=== PATIENT | female | born 1965 | race Caucasian/White ===

== ENCOUNTER 2016-11-23 11:00 | Observation (INO) | payer BC ==
--- NOTE | ~2016-11-23 | EKG ---
PATIENT: GIAN BROOKE UNIT #: [id number] Ventricular Rate: 45 BPM Atrial Rate: 45 BPM P-R Interval: 172 ms QRS Duration: 102 ms Q-T Interval: 470 ms QTC Calculation(Bezet): 406 ms P [place]: 40 degrees Calculated R [place]: 53 degrees Calculated T [place]: 31 degrees Diagnosis Line: Sinus bradycardia Diagnosis Line: Otherwise normal ECG Diagnosis Line: No previous ECGs available Diagnosis Line: Confirmed by ANAND GIRALDO MD ([id number]) on 11/23/2016 Diagnosis Line: 4:46:40 PM INTERPRETING MD: ENZO PALACIO
--- NOTE | ~2016-11-23 | HP ---
Unit #: [id number] #: [id number] Patient: GIAN BROOKE [id number] [place], [place] [address] [id number] I MR#: [id number] NAME: GIAN BROOKE ROOM: 66915 Age: 51 Sex: F Admission Date: 11/23/2016 : 1965 Attending Physician: Joan Willoughby M.D. Primary Care Physician: No Primary Care Physician HISTORY AND PHYSICAL CHIEF COMPLAINT Syncopal episode in [facility]. HISTORY OF PRESENT ILLNESS The patient is a 51-year-old female with no significant past medical history, who presented to the emergency department for evaluation of the above. The patient states that she was in her usual state of health until the morning of admission when she felt lightheaded at [facility]. She states that she had eaten breakfast this morning. She was standing in [facility] and experiencing some minor low-back pain that she attributed to muscle strain related to work. She states that she felt somewhat lightheaded. She subsequently sat down. There was a nurse at [facility] who checked her heart rate and it was in the 40s. She states that she felt lightheaded for about 15 minutes and then the symptoms resolved. She denies any chest pain, no shortness of breath, no palpitations. She states that she had a similar event years ago when she was having blood work during and had a near syncopal episode. In the emergency department, initial pulse and blood pressure were 54 and 86/63 respectively. EKG showed sinus bradycardia with a rate of 45 beats per minute. She is being admitted to [facility] for evaluation and further treatment. PAST MEDICAL HISTORY Hospitalized possibly at [facility] for near syncopal episode during . PAST SURGICAL HISTORY None. SOCIAL HISTORY The patient lives with her . There is no tobacco or alcohol use. She works at [employer]. She is active. She states that she sometimes cuts three lawns in a day. FAMILY HISTORY Notable for her mother dying of a myocardial infarction at the age of 70. Her dad has hyperlipidemia. ALLERGIES No known allergies. Unit #: [id number] #: [id number] Patient: GIAN BROOKE HOME MEDICATIONS None. REVIEW OF SYSTEMS A complete review of systems is negative except as indicated in the HPI. The patient states that she has never had a stress test, never had a cardiac catheterization. DIAGNOSTIC STUDIES LABORATORY: Urine tox screen is negative. Urinalysis notable for trace leukocyte esterase, trace protein, 2-5 red blood cells, 10-25 white blood cells, 2+ bacteria with a just a few squamous cells. Comprehensive metabolic panel is essentially normal. Alcohol level is less than 5. INR is 1. Troponin is less than 0.05. Complete blood count is completely normal. IMAGING: Chest x-ray shows no acute abnormality. CARDIOVASCULAR: EKG shows sinus bradycardia with rate of 45 beats per minute. PHYSICAL EXAMINATION VITAL SIGNS: Temperature is 98.6, pulse 54, respirations 16, blood pressure 86/63, most recently 98/77. Oxygen saturation is 100% on room air. GENERAL: The patient is a very pleasant female who is awake and alert in no acute distress. HEENT: The head is atraumatic. Mucous membranes are moist. NECK: Supple. Trachea is midline. CARDIOVASCULAR: Regular rate and rhythm. LUNGS: Clear to auscultation bilaterally with no increased work of breathing. ABDOMEN: Soft, nontender with bowel sounds present in all four quadrants. EXTREMITIES: Nontender with no pedal edema. NEUROLOGIC: The patient is awake and alert. She follows commands. PSYCHIATRIC: Mood and affect are normal. The patient is cooperative. SKIN: Skin of examined areas is warm and dry. ASSESSMENT The patient is a 51-year-old female with: 1. Near syncope. 2. Bradycardia. 3. Hypotension. 4. Urinary tract infection. PLAN 1. Admit for observation to intermediate level. 2. Healthy heart diet. 3. NPO after midnight for possible stress test. 4. Normal saline at 125 mL/hr. 5. Fall precautions. 6. Orthostatics q. shift. 7. Serial cardiac enzymes. 8. Consult Dr. Bartlett regarding near syncope. 9. Monitor heart rate and blood pressure closely. 10. Blood cultures x2. 11. Urine culture and sensitivity on urine in the lab. 12. Rocephin 1 g IV daily pending results of urine culture. Unit #: [id number] #: [id number] Patient: GIAN BROOKE 13. Check TSH. 14. SCDs. 15. Repeat labs in the morning. 16. Additional workup and consultants based on above. Dictated by Joan Willoughby M.D. ERIKA/jesus TD: 11/23/2016 14:46 JOB #: [id number] HISTORY AND PHYSICAL Page 1 of 1 X Joan Willoughby MD HISTORY AND PHYSICAL
--- NOTE | ~2016-11-23 | CO ---
Unit #: [id number] #: [id number] Patient: GIAN BROOKE [id number] [address] [id number] I MR#: [id number] NAME: GIAN BROOKE ROOM: 566 Age: 51 Sex: F Admission Date: 11/23/2016 : 1965 Attending Physician: Basia Lott M.D. Consultation Date: 11/24/2016 CONSULTATION REPORT REASON FOR CONSULTATION Near syncope, bradycardia, and hypotension. HISTORY OF PRESENT ILLNESS This is a 51-year-old white female with no significant medical history, who was sent to the emergency room by advice of her health care provider outpatient for near syncopal episode and bradycardia. According to the patient, she was at [employer] yesterday and had been standing and sitting frequently and had been standing for almost 30 minutes. She started feeling very lightheaded and weak. She said she also started felt in flush and sat down. She said there was a nurse nearby who came over to her and checked her pulse. She said her heart rate was 40. The patient never did have a syncopal episode. She denies any chest pain or pain in her neck, bilateral jaws, shoulders, arms, or elbow. She said while she was standing, she had a little bit of lower back discomfort, which she has problems with a strained muscle, but she said it was not unusually painful. She felt better, however, the nurse advised her to go to the hospital to be evaluated. She came to the ER per her advice. The patient said she had an episode like this in the past when she was while there was lot of blood, but never passed out, but just had a near syncopal episode. In the emergency room, the patient's blood pressure was 86/63, her heart rate was 54, respirations 16, temperature 98.6, O2 saturation was 100% on room air. Her EKG shows sinus bradycardia with heart rate of 45 beats per minute, nothing acute. Initial cardiac enzymes are negative. The patient was admitted for near syncope, hypotension, and sinus bradycardia. Cardiology was consulted to assist with evaluation and management. PAST MEDICAL HISTORY 1. Denies hypertension, hyperlipidemia, or diabetes mellitus. 2. No stress or cardiac cath in the past. 3. Nonsmoker. 4. Her mother at the age of 70 with complications after an CO, but she had diabetes mellitus and kidney failure. PAST SURGICAL HISTORY None. HOME MEDICATIONS control pills. ALLERGIES Unit #: [id number] #: [id number] Patient: GIAN BROOKE No known drug allergies. SOCIAL HISTORY The patient lives with her spouse and children. She works full-time at [employer]. She is very active outside the home. 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 She smokes for about 10 years between age 22 and 32, but denies any alcohol or illicit drug abuse. FAMILY HISTORY As mentioned, her mother at the age of 70 after had a myocardial infarction, but she had complications of diabetes mellitus and renal failure. Her father and siblings were in generally well health. REVIEW OF SYSTEMS See details in HPI. PHYSICAL EXAMINATION GENERAL: Ms. Brooke is a 51-year-old white female. No acute respiratory distress. She is awake, alert, and oriented. VITAL SIGNS: Currently, her blood pressure is 104/66 with a heart rate of 53, lying; standing blood pressure 110/68 with a heart rate of 61; respirations 18; afebrile; O2 saturations 99% on room air. NECK: Trachea midline. No thyromegaly or lymphadenopathy. Normal carotid upstrokes. No jugular venous distention. HEART: S1, S2. Regular rate and rhythm. No clicks, murmurs, or rubs. LUNGS: Bilaterally clear throughout. No wheezes, rales, or rhonchi. ABDOMEN: Soft, nontender. Positive bowel sounds present. No hepatosplenomegaly. EXTREMITIES: Pedal pulses are palpable. No pedal edema. DIAGNOSTIC STUDIES LABORATORY RESULTS: Glucose is 107, BUN 12, creatinine 0.7, eGFR is 101.7, sodium 141, potassium 4.0, chloride 112, CO2 is 24, calcium is 8.3, total protein 6.7, albumin 3.8, bilirubin total of 1.2, AST 18, ALT 13, alkaline phosphatase is 48. Lactic acid is 0.6. TSH is 0.48. Alcohol level less than 5. WBCs 5.6, hemoglobin is 12.3, hematocrit 37.8, platelets are 156. Urine tox screen is negative. Urinalysis; trace of leukocyte esterase, trace of protein, 1.0 urobilinogen, 10 to 25 wbc's, 2+ bacteria. Initial cardiac enzymes; CK-MB is less than 1.0, troponin less than 0.05, CK-MB is less than 1.0, troponin less than 0.05. Repeat cardiac enzymes; CK total is 467, MB is 1.1, percentage of MB 1.6, and troponin less than 0.03. IMAGING STUDIES: Chest x-ray shows lungs are slightly hyperinflated, otherwise nothing acute. CARDIOVASCULAR STUDIES: EKG showed normal sinus bradycardia with ventricular rate 45 beats per minute, nothing acute. Telemetry had shown sinus bradycardia, heart rate 50s and 60s. IMPRESSION 1. Near syncope. 2. Hypotension. 3. Bradycardia. 4. Urinary tract infection. 5. Reformed smoker. PLAN Unit #: [id number] #: [id number] Patient: GINA BROOKE 1. Cardiology consult to assist with evaluation and management. It is felt that possibly her near syncopal episode could be vasovagal. Her orthostatic vitals here unremarkable. 2. We will obtain a 2D echo to evaluate LV function and valves. 3. The patient is fairly active with no symptoms. If her echo looks okay and she continues to have no orthostasis, we will plan to do an outpatient stress test at a later date. On exam, there are no signs or symptoms of unstable angina. 4. Her TSH is normal. Obtain a fasting lipid profile and evaluate. 5. The patient is being treated for UTI, which could also be contributing to her near syncopal episode. 6. The patient's blood pressure is better this morning. She did receive a 2 L bolus of IV fluids. 7. Further recommendations pending per Dr. Villatoro. Thank you very much for allowing us to assist in the care. Dictated by... Kathy Jorge/raymond TD: 11/25/2016 00:44 JOB #: [id number] CONSULTATION REPORT Page 1 of 1 X Palak Mejía APRN CONSULTATION REPORT
--- NOTE | ~2016-11-23 | CR72 ---
[facility] A Service of [facility] & [facility] RADIOLOGY TEXT RESULTS PATIENT: GIAN BROOKE LOCATION: [facility] 566-01 : [birth year] UNIT #: [id number] AGE: [address]: Basia Lott MD SEX: F ORDER DR: [id number] [facility] [address] [address] [place], [place] [address] [id number] MR#: [id number] Acc #: [id number] NAME: GIAN BROOKE : 1965 SEX: F STUDY DATE/TIME: 11/23/2016 10:39 UNIT: [facility] ROOM: STUDY DESCRIPTION: CR Chest Single View Portable Attending Physician: Padmini Elise M.D. Ordering Physician: Padmini Elise M.D. Primary Care Physician: No Primary Care Physician MEDICAL IMAGING REPORT This report is preliminary unless electronic signature is present EXAM Single view of the chest dated 11/23/2016. COMPARISON None HISTORY Syncope today. FINDINGS Single view of the chest was obtained. Lungs are slightly hyperinflated which could be due to deep inspiration or less likely emphysematous change in the appropriate clinical setting. No superimposed acute cardiopulmonary disease. No pleural effusion, pneumothorax, or a lung mass. Heart, mediastinum, and bones are within normal limits. Dictated by... Emma Simon M.D. THIS IS AN ELECTRONICALLY VERIFIED REPORT Emma Simon M.D. at 11/24/2016 2:13 PM CPR/tmw TD: 11/23/2016 12:46 JOB #: [id number] MEDICAL IMAGING REPORT Page 1 of 1 COPY
--- NOTE | ~2016-11-23 | DS ---
Unit #: [id number] #: [id number] Patient: GIAN BROOKE [id number] [address] [address] [id number] I MR#: [id number] NAME: GIAN BROOKE ROOM: 566 Age: 51 Sex: F Admission Date: 11/23/2016 : 1965 Discharge Date: 11/24/2016 Attending Physician: Basia Lott M.D. Primary Care Physician: Flor Primary Care Physician DISCHARGE SUMMARY DISCHARGE DIAGNOSES 1. Near syncope with bradycardia secondary to vasovagal, also hypertension and dehydration. 2. Urinary tract infection: Cultures pending at time of dictation. CONSULTATION Dr. Villatoro. PROCEDURES None. LAB DATA Chest x-ray - no pneumonia. Blood cultures negative. Creatinine 0.7, sodium 141, potassium 4.0, WBC 5.6, hemoglobin 11.2, platelets 156. Troponin is negative. TSH 0.48. Lactic acid 0.6. Urine drug screen negative. Urinalysis shows WBC 10-25, bacteria 2+, trace leukocyte esterase. Echocardiogram shows ejection fraction 55%. Mild to moderate tricuspid regurgitation. Mild pulmonary valvular regurgitation present. ALLERGIES None. DISCHARGE MEDICATIONS Nitrofurantoin 100 mg p.o. b.i.d. HOSPITALIZATION COURSE 51-year-old admitted because of near syncope. Near syncope, most likely secondary to vasovagal and also she might have some dehydration and hypovolemia: Patient received IV fluids. She was hypotensive on admission also. Currently, hypotension and bradycardia resolved. She is not orthostatic anymore. No symptoms. The patient will be discharged home. Follow with Dr. Villatoro on Thursday, February 23, at 11 a.m. Follow with family physician in one week time. Unit #: [id number] #: [id number] Patient: GIAN BROOKE Discharge home. Activity as tolerated. Diet - regular. Dictated by... Ronna Hunter TD: 11/25/2016 05:51 JOB #: [id number] DISCHARGE SUMMARY Page 1 of 1 X Basia Lott MD DISCHARGE SUMMARY
[2016-11-23 11:15] LABS: BASOPHIL% 0.3 % (0-2.5); EOSINOPHIL# 0.1 X10e3 (0-0.7); EOSINOPHIL% 0.8 % (0.0-7.0); HEMATOCRIT 37.8 % (35.0-45.0); HEMOGLOBIN 12.3 gm/dL (12.0-16.0); LYMPHOCYTE# 1.8 X10e3 (1.0-3.5); LYMPHOCYTE% 22.7 % (17.0-45.0); MEAN CELL VOLUME 90.6 FL (83-96); MEAN CORPUSCULAR HEMOGLOBIN 29.5 PG (28-34); MEAN CORPUSCULAR HGB CONC 32.6 g/dL (30-36); MEAN PLATELET VOLUME 8.4 FL (6.5-11.5); MONOCYTE# 0.6 X10e3 (0-1.0); NEUTROPHIL# 5.3 X10e3 (1.5-7.1); NEUTROPHIL% 68.2 % (40-75); PLATELET COUNT 209 X10e3 (140-420); RED BLOOD COUNT 4.17 X10e (3.90-5.30); RED CELL DISTRIBUTION WIDTH 12.5 % (11.0-15.5); WHITE BLOOD COUNT 7.8 X10e3 (4.0-10.5)
[2016-11-23 11:17] LABS: DIFF IND NO
[2016-11-23 11:23] LABS: POC - CKMB <1.0 ng/mL (0.0-7.9); POC - TROPONIN <0.05 ng/mL (<=0.05)
[2016-11-23 11:28] LABS: PROTHROMBIN TIME (PATIENT) 10.8 SECONDS (9.6-11.5)
[2016-11-23 11:40] LABS: ALBUMIN SERUM 3.8 g/dL (3.5-5.0); ALKALINE PHOSPHATASE 48 U/L (32-92); ALT (SGPT) 13 U/L (10-40); AST (SGOT) 18 U/L (10-42); BILIRUBIN, DIRECT 0.1 mg/dL (0.0-0.2); BILIRUBIN,INDIRECT 1.1 mg/dL (0.0-0.9); BILIRUBIN,TOTAL 1.2 mg/dL (0.2-2.0); BLOOD UREA NITROGEN 13 mg/dL (9-23); BUN/CREATININE RATIO 14.44; CALCIUM SERUM 8.5 mg/dL (8.4-10.2); CARBON DIOXIDE 26 mmol/L (22-31); CHLORIDE 103 mmol/L (100-111); CREATININE SERUM 0.9 mg/dL (0.6-1.4); GLOM FILT RATE Estimated 75.1 mL/min (>60); GLUCOSE FASTING 95 mg/dL (70-110); POTASSIUM 3.7 mmol/L (3.5-5.1); PROTEIN TOTAL SERUM 6.7 g/dL (6.0-8.3); SODIUM 136 mmol/L (135-145)
[2016-11-23 11:43] LABS: URINE SOURCE CLEAN CATCH
[2016-11-23 11:44] LABS: ALCOHOL BLOOD <5 mg/dL ([, 0])
[2016-11-23 11:50] LABS: URINE APPEARANCE CLOUDY; URINE BLOOD NEG (NEG); URINE COLOR DK YELLOW; URINE GLUCOSE NEG (NEG); URINE KETONE TRACE (NEG); URINE LEUKOCYTE ESTERASE TRACE (NEG); URINE NITRATE NEG (NEG); URINE PROTEIN TRACE (NEG); URINE SPECIFIC GRAVITY 1.024 (1.003-1.035)
[2016-11-23 11:53] LABS: CULTURE INDICATED? YES; URINE BACTERIA AUWI 2+ (NEGATIVE); URINE SQUAMOUS EPITHELIAL CELL FEW /[HPF]
[2016-11-23 11:58] LABS: U HYALINE CASTS AUWI 0-2 /[LPF]; URINE BILIRUBIN NEG (NEG)
[2016-11-23 12:10] LABS: AMPHETAMINE NEG (NEG); BARBITURATES NEG (NEG); BENZODIAZEPINES NEG (NEG); COCAINE NEG (NEG); MARIJUANA NEG (NEG); OPIATES NEG (NEG); TRICYCLIC ANTIDEPRESSANTS NEG (NEG); U METHADONE NEG (NEG)
[2016-11-23 13:43] LABS: POC - CKMB <1.0 ng/mL (0.0-7.9); POC - TROPONIN <0.05 ng/mL (<=0.05)
[2016-11-23 20:45] LABS: CK TOTAL 59 IU/L (26-140)
[2016-11-24 04:48] LABS: %MB 1.6 % (0.0-4.0); MB 1.1 ng/ml
[2016-11-24 05:12] LABS: BASOPHIL% 0.4 % (0-2.5); EOSINOPHIL# 0.1 X10e3 (0-0.7); EOSINOPHIL% 1.1 % (0.0-7.0); HEMATOCRIT 33.4 % (35.0-45.0); HEMOGLOBIN 11.2 gm/dL (12.0-16.0); LYMPHOCYTE# 0.7 X10e3 (1.0-3.5); LYMPHOCYTE% 13.2 % (17.0-45.0); MEAN CORPUSCULAR HGB CONC 33.4 g/dL (30-36); MEAN PLATELET VOLUME 8.4 FL (6.5-11.5); MONOCYTE# 0.5 X10e3 (0-1.0); MONOCYTE% 8.1 % (3.0-12.0); NEUTROPHIL# 4.4 X10e3 (1.5-7.1); NEUTROPHIL% 77.2 % (40-75); PLATELET COUNT 156 X10e3 (140-420); RED BLOOD COUNT 3.72 X10e (3.90-5.30); RED CELL DISTRIBUTION WIDTH 12.2 % (11.0-15.5); WHITE BLOOD COUNT 5.6 X10e3 (4.0-10.5)
[2016-11-24 05:17] LABS: DIFF IND NO
[2016-11-24 06:16] LABS: BUN/CREATININE RATIO 17.14; CALCIUM SERUM 8.3 mg/dL (8.4-10.2); CREATININE SERUM 0.7 mg/dL (0.6-1.4); GLOM FILT RATE Estimated 101.7 mL/min (>60)
[2016-11-24] MEDS ORDERED: NITROFURANTOIN100 M3 PO (17:31)
== END 2016-11-24 17:51 | disposition home or self-care (01) | DRG 312 ==
LOC: CED 11:00 → CEDOF 13:50 → C5C 18:48
PROVIDERS: Emergency Medicine; Family Medicine
DX: R55 Syncope and collapse (principal); R00.1 Bradycardia, unspecified; I95.9 Hypotension, unspecified; N39.0 Urinary tract infection, site not specified; E86.0 Dehydration; Z82.49 Family history of ischemic heart disease and other diseases of the circulatory system; Z83.3 Family history of diabetes mellitus; Z84.1 Family history of disorders of kidney and ureter; Z87.891 Personal history of nicotine dependence; I08.8 Other rheumatic multiple valve diseases
CPT/HCPCS: 36415; 71010; 80048; 80076; 80307; 81003; 82550; 82553; 83605; 84443; 84484; 84703; 85025; 85610; 85730; 87040; 87086; 93005; 93306; 96360; 96361; 96374; 96376; 99285; G0378; G0480; J0696